=== PATIENT | female | born 1990 | race African-American/Black ===

== ENCOUNTER 2017-12-20 22:57 | Emergency (ER) | payer OTHER ==
[~2017-12-20] VITALS: Ht 175.3 cm; Wt 65.8 kg
[2017-12-20 23:15] VITALS: BP_SYST 112
--- NOTE | 2017-12-20 23:15 | NUR ---
Patient to ER bed 03 to gown for evaluation. Side rails up. Report received from MAYA Sorto
--- NOTE | 2017-12-20 23:20 | NUR ---
Patient brought in with daughter complaining of RLQ abdominal pain radiating to her suprapubic area starting tonight at 2300. Patient also complaining of nausea. Patient reports having vaginal bleeding for last 3 weeks and reports being on her period at this time. No other complaints/injuries per patient or as noted. Will continue to monitor.
[2017-12-20] MEDS ORDERED: NACL 0.9% 1,000 ML IV ONE (23:33)
--- NOTE | 2017-12-20 23:33 | NUR ---
ER Dr. Valderrama at bedside examining patient.
[2017-12-20] MEDS ORDERED: KETOROLAC TROMETHAMINE 30 MG VIAL IVP ONE (23:45)
--- NOTE | 2017-12-21 00:07 | NUR ---
# 20 gauge angiocath placed to Right AC. Use of asceptic technique. Opsite placed over site. Blood return noted. Blood for lab drawn from site. Flushed with 10 cc of normal saline. No evidence of infiltration noted. Patient tolerated well.
[2017-12-21 00:09] LABS: BASOPHILS % (AUTO) 0.6 % (0.0-2.0); EOSINOPHILS # (AUTO) 0.1 K/uL (0.0-0.4); EOSINOPHILS % (AUTO) 1.1 % (0.0-4.0); HEMATOCRIT 39.5 % (36-48); HEMOGLOBIN 12.6 g/dL (12.0-16.0); LYMPHOCYTES # (AUTO) 1.6 K/uL (1.0-5.5); MEAN CORPUSCULAR HEMOGLOBIN 28 pg (27-31); MEAN CORPUSCULAR HGB CONC 32 % (32-36); MEAN CORPUSCULAR VOLUME 88 fL (79.0-98.0); MONOCYTES # (AUTO) 0.4 K/uL (0.0-1.0); MONOCYTES % (AUTO) 4.5 % (1.7-9.3); NEUTROPHILS # (AUTO) 5.9 K/uL (1.8-7.7); NEUTROPHILS % (AUTO) 73.8 % (40.0-70.0); PLATELET COUNT (AUTO) 259 K/uL (130-430); RED BLOOD CELL COUNT(AUTO) 4.49 MIL/uL (4.2-6.2)
[2017-12-21 00:24] LABS: CREATININE 0.67 mg/dL (0.55-1.30); POTASSIUM 3.7 mmol/L (3.5-5.1)
--- NOTE | 2017-12-21 00:28 | NUR ---
Medicated per MD orders. IVF infusing with no s/s of infiltration at this time. Will cont to monitor
[2017-12-21 00:29] LABS: TOTAL BILIRUBIN 0.8 mg/dL (0.0-1.0)
[2017-12-21] MEDS ORDERED: ONDANSETRON HCL 4 MG/2 ML VIAL IVP ONE (00:30)
--- NOTE | 2017-12-21 01:22 | NUR ---
Patient transported to radiology via Wheelchair, accompanied by Jayshree
--- NOTE | 2017-12-21 02:01 | NUR ---
Patient returned from ultrasound. Awaiting results
--- NOTE | 2017-12-21 02:12 | NUR ---
Charmaine leroy in ED - 12/21/17 at [email or web address] Valderrama consulting with Dr. Viramontes at this time for possible admission.
[2017-12-21] MEDS ORDERED: LR 1,000 ML IV SCH (02:15)
[2017-12-21] MEDS ORDERED: MORPHINE 4 MG/ML INJ. SYRINGE IVP PRN (02:15)
--- NOTE | 2017-12-21 03:10 | NUR ---
Patient reports pain to Abdomen and headache. Rates pain 9/10. Quality of pain Sharp. MD notified
[2017-12-21] MEDS ORDERED: MORPHINE 2 MG/ML INJ. SYRINGE IVP ONE (03:15)
--- NOTE | 2017-12-21 03:17 | NUR ---
Medicated per MD orders. IWill cont to monitor
--- NOTE | 2017-12-21 04:24 | NUR ---
Patient to be transferred to [facility] ED. Is being transferred due to higher level of care. Receiving facility has accepting physician and available space. ER physician has signed transfer form. Patient or responsible republican has agreed to transfer and signed form. Patient belongings inventoried and will be sent with patient. Copy of nursing notes, lab reports, EKG, Physicians Orders and X-rays to be sent with patient. Report called to MAYA Ackerman at receiving facility. Receiving physician is Dr. Neal. [facility] has been called for transfer. ETA is [id number]
[2017-12-21] MEDS ORDERED: KETOROLAC TROMETHAMINE 30 MG VIAL IVP ONE (05:00)
[2017-12-21 05:07] VITALS: BP_SYST 124
--- NOTE | 2017-12-21 05:07 | NUR ---
Report given to [facility] transport. Patient transferred to [facility] ED. Patient AAO x 4 awake and ambulatory. No complaints at this time.
== END 2017-12-21 05:07 | disposition home or self-care (01) ==
LOC: SED 22:57
DX: O00.90 Unspecified ectopic pregnancy without intrauterine pregnancy (principal); Z3A.00 Weeks of gestation of pregnancy not specified
CPT/HCPCS: 36415; 76801; 76817; 80053; 84702; 85025; 86900; 86901; 87040; 96374; 96375; 99285; J1885; J2270; J2405; J7030